=== PATIENT | male | born 1960 | race Caucasian/White ===

== ENCOUNTER 2019-10-12 18:12 | Inpatient (IN) | payer OTHER ==
[~2019-10-12] VITALS: Ht 177.8 cm; Wt 71.9 kg
[2019-10-12 18:15] VITALS: BP 124/73; BP 127/77
[2019-10-12] MEDS ORDERED: TYLENOL325 M1 PO (22:17)
[2019-10-12] MEDS ORDERED: DIGOX125 MCG PO (22:19)
[2019-10-12] MEDS ORDERED: LORAZEPAM 1 MG T1 MG PO (22:20)
[2019-10-12 22:22] LABS: ABSOLUTE NEUTROPHILS 4.6 thou/uL (1.4-8.2); BASOPHILS 0.6 % (0.0-2.0); EOSINOPHILS 0.4 % (0.0-3.0); HEMATOCRIT 44.5 % (42.0-52.0); HEMOGLOBIN 14.6 gm/dL (14.0-18.0); LYMPHOCYTES 5.5 % (24.0-44.0); MCH 30.6 pg (26.0-34.0); MCHC 32.8 g/dL (28.0-37.0); MCV 93.3 fL (80.0-100.0); MONOCYTES 11.5 % (1.0-8.0); PLATELET COUNT 348 thou/uL (150-400); RBC 4.77 mil/uL (4.50-6.00); RDW 19.1 % (10.5-14.5); WBC 5.7 thou/uL (4.0-11.0)
[2019-10-12] MEDS ORDERED: MSL20MG/ML PO (22:22)
[2019-10-12] MEDS ORDERED: PROAIR HFA8.5 GM INH (22:23)
[2019-10-12] MEDS ORDERED: NORCO 10-325 T1 EACH PO (22:23)
[2019-10-12] MEDS ORDERED: PROTONIX 20 MG20 M1 PO (22:24)
[2019-10-12 22:29] LABS: CALCIUM 8.3 mg/dL (8.5-10.1); POTASSIUM 5.1 mmol/L (3.5-5.1)
[2019-10-12 22:35] LABS: ALBUMIN 1.8 g/dL (3.4-5.0); DIRECT BILIRUBIN 1.6 mg/dL (<0.1-0.2); TOTAL BILIRUBIN 2.4 mg/dL (0.2-1.0); TOTAL PROTEIN 6.3 g/dL (6.4-8.2)
[2019-10-12 22:49] LABS: INR 1.2; PROTIME 12.3 Seconds (9.3-11.4)
[2019-10-13 00:06] VITALS: BP 120/73
[2019-10-13 00:23] VITALS: BP 109/76
[2019-10-13 01:32] VITALS: BP 116/78
[2019-10-13 05:42] VITALS: BP 104/58
[2019-10-13 06:25] LABS: ALBUMIN 1.7 g/dL (3.4-5.0); CALCIUM 8.3 mg/dL (8.5-10.1); CREATININE 0.8 mg/dL (0.7-1.3); TOTAL BILIRUBIN 2.8 mg/dL (0.2-1.0); TOTAL PROTEIN 5.9 g/dL (6.4-8.2)
--- NOTE | 2019-10-13 07:48 | EKG ---
[facility] [place] [address] ELECTROCARDIOGRAM REPORT Name: DAVID NEWMAN Room #: 354-P ADM IN M.R.#: [id number] Admission: 10/12/19 Attend Phys: Italia Sims MD Discharge: Date of : 56 Report #: [id number] THIS REPORT FOR: cc: Von Perez James D. DO Lundgren, Craig H. 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: DREW : 1960 Requested By: Crow Marie Order Number: [id number] MD: Leno Palacios Measurements Intervals [place] Rate: 96 P: [place]: QRS: 268 QRSD: 110 T: 106 QT: 338 QTc: 428 Interpretive Statements Sinus rhythm Inferior infarct, old Anteroseptal infarct, age indeterminate No previous ECG available for comparison Electronically Signed On 10-13-2019 7:48:13 CDT by Leno Palacios [email or web address] <ELECTRONICALLY SIGNED> By: Leno Palacios MD, [facility] 10/13/19 0748 [id number] Leno Palacios MD, [facility] /EPI
[2019-10-13 07:54] VITALS: BP 104/67
[2019-10-13] MEDS ORDERED: FLOMAX0.4 MG PO (09:54)
[2019-10-13] MEDS ORDERED: LIPITOR40 MG PO (09:55)
[2019-10-13 11:15] VITALS: BP 116/69
== END 2019-10-13 14:29 | disposition hospice, home (50) | DRG 177 ==
LOC: ER 18:12 → 3W 23:38 → EROBS 23:38 → 3W 10-13 00:37
PROVIDERS: Emergency Medicine; Nurse Practitioner Family; ADMIT Hospitalist; ATTEND Hospitalist
PROC: 0W9G3ZZ Drainage of Peritoneal Cavity, Percutaneous Approach (ICD-10-PCS; principal; 2019-10-13)
DX: U07.1 COVID-19 (principal); J96.01 Acute respiratory failure with hypoxia; R18.8 Other ascites; K74.60 Unspecified cirrhosis of liver; E87.70 Fluid overload, unspecified; K72.90 Hepatic failure, unspecified without coma; Z66 Do not resuscitate; Z79.899 Other long term (current) drug therapy; Z88.0 Allergy status to penicillin; Z87.891 Personal history of nicotine dependence

== ENCOUNTER 2019-11-05 14:02 | Inpatient (IN) | payer OTHER ==
[~2019-11-05] VITALS: Ht 172.7 cm; Wt 64.9 kg
--- NOTE | ~2019-11-05 | EMS ---
[address] [address] EMS Patient Care Report Name: DAVID NEWMAN Room #: 350-P ADM IN M.R.#: [id number] Admission: 11/05/19 Attend Phys: Aric Garrido MD Discharge: Date of : 56 Report #: [id number] THIS REPORT FOR: //name// Report Transmitted: 11/06/2019 06:08 EMS Care Summary [place], [place]/[facility] Incident [id number] @ 11/05/2019 13:31 Incident Location [address] [place] [address] Patient DAVID NEWMAN Male, 59 Years 1960 Patient Address [address] [place], [place] [id number] Patient History Cirrhosis of Liver, Patient Allergies Penicillin allergy, Patient Medications Acetaminophen, Lorazepam, Morphine, Chief Complaint PT CATHETER WILL NOT FLUSH Disposition Transported No Lights/[place] Dispatch Reason Abdominal Pain/Problems Transported To [facility] Narrative PT STATES THAT PT HAS A CATHETER THAT WILL NOT FLUSH FOR THE LAST 3 DAYS. PT STATES THAT PT HAS CHORISIS OF THE LIVER. PT'S NURSE REPORTS THAT THAT HAS NOT HAD A FEVER OR ANY RECENT COUGH. PT STATES THAT PT'S ABDOMEN HURTS BECAUSE OF [address] [address] EMS Patient Care Report Name: DAVID NEWMAN Room #: 350-P [facility] IN [place]#: [id number] Admission: 11/05/19 Attend Phys: Aric Garrido MD Discharge: Date of : 56 Report #: [id number] THE DISTENSION. PT HAS NOT OTHER COMPLAINTS. PT WAS FOUND BEIING WHEEL CHAIRED TO EMS BY PT'S NURSE. PT SPOKE IN FULL AND COMPLETE SENTENCES. PT IS ALERT AND ORIENTE. PT IS ABLE TO STAND AND PIVOT WITH ASSITEANCE. PT HAS A PARTIAL AMPUTEE OF RIGHT FOOT. PT HAS NO OTHER OBVIOUS ABNORMALITIES. Initial Vitals @13:50P: 97,BP: 97/62,CO: 0,SpO2: 98, @13:45P: 78,R: 18,BP: 121/79,Pain: 10/10,GCS: 15,SpO2: 90,Revised Trauma: 12, Assessments @13:41MENTAL:Person Oriented,Time Oriented,Place Oriented,Event Oriented,SKIN:HEENT:Eyes: Left Pupil: 3-mm,Eyes: Right Pupil: 3-mm,Head/Face: No Abnormalities,LUNG SOUNDS:General: Nausea,ABDOMEN:General: Nausea,PELVIS//GI:EXTREMITIES:Capillary Refill: Right Upper: < 2 Sec,Left Arm: No Abnormalities,Right Arm: No Abnormalities,Left Leg: No Abnormalities,PULSE:Radial: 2+ Normal,NEURO: Impression Abdominal Pain Timeline 13:29,Call Received 13:29,Dispatch Notified 13:31,Dispatched 13:32,En Route 13:39,On Scene 13:40,At Patient 13:45,BP: 121/79 M,PULSE: 78,RR: 18 R,SPO2: 90 Ox,ETCO2: ,BG: ,PAIN: 10,GCS: 15, 13:47,Depart Scene 13:50,BP: 97/62 M,PULSE: 97,RR: R,SPO2: 98 Ox,ETCO2: ,BG: ,PAIN: ,GCS: , 13:56,At Destination 14:25,Call Closed Disclaimer v1.1 Copyright 2020 [employer] This EMS Care Summary contains data elements from the applicable legal record (which may be displayed differently). It is designed to provide pertinent information for the following purposes: continuity of care, clinical quality, and state data reporting. The complete legal record is available to ED staff and administrators of the receiving hospital in [employer] Patient Tracker. All data is provided "as is."
[~2019-11-05 14:02] MED LIST: DIGOX125 MCG PO; FLOMAX0.4 MG PO; LIPITOR40 MG PO; LORAZEPAM 1 MG T1 MG PO; MSL20MG/ML PO; NORCO 10-325 T1 EACH PO; PROAIR HFA8.5 GM INH; PROTONIX 20 MG20 M1 PO; TYLENOL325 M1 PO
[2019-11-05 14:03] VITALS: BP 125/80
[2019-11-05 16:08] LABS: HEMATOCRIT 36.8 % (42.0-52.0); HEMOGLOBIN 12.1 gm/dL (14.0-18.0); MCH 31.2 pg (26.0-34.0); MCHC 32.9 g/dL (28.0-37.0); MCV 94.7 fL (80.0-100.0); PLATELET COUNT 438 thou/uL (150-400); RBC 3.89 mil/uL (4.50-6.00)
[2019-11-05 16:20] LABS: CALCIUM 7.5 mg/dL (8.5-10.1); CREATININE 0.7 mg/dL (0.7-1.3); POTASSIUM 3.9 mmol/L (3.5-5.1)
[2019-11-05 16:21] LABS: INR 1.3; PROTIME 12.7 Seconds (9.3-11.4)
[2019-11-05 16:38] LABS: ABSOLUTE NEUTROPHILS 3.8 thou/uL (1.4-8.2); ANISOCYTOSIS 1+; MICROCYTES SLIGHT
[2019-11-05 16:39] LABS: MACROCYTES SLIGHT; POLYCHROMASIA SLIGHT
--- NOTE | 2019-11-05 16:58 | NUR ---
O2 REMOVED BY PROVIDER, SATS DECREASED, O2 PUT BACK ON
--- NOTE | 2019-11-05 17:33 | NUR ---
PT SEEN SITTING UP IN BED. THIS NURSE ENTERS ROOM AND PATIENT HAD REMOVED OWN IV STATING "I DONT WANT THAT SHIT IN" PT HAS BLOOD ALL OVER HIM AND HAS REMOVED O2. PT AGREES TO PUT O2 BACK ON BUT WILL NOT LEAVE ANY OTHER MONITORING EQUIPMENT ON
[2019-11-05] MEDS ORDERED: MIDODRINE HCL 55 M1 PO (18:47)
[2019-11-05] MEDS ORDERED: MORPHINE S20 MG/5 ML PO (18:48)
[2019-11-05 19:02] VITALS: BP 100/72
[2019-11-05 19:22] VITALS: BP 102/65
[2019-11-05 19:30] VITALS: BP 93/60
--- NOTE | 2019-11-05 23:54 | NUR ---
ASSESSMENT: PT ARRIVED TO THE UNIT AT APPROXIMATELY 1930 FROM ED, ACCOMPANIED BY STAFF MEMBERS. ACCORDING TO ED STAFF, PT IS VERY UNCOOPERATIVE WITH CARE. PT REFUSED TO HAVE AN IV REPLACED. DID NOT WANT TO TAKE OFF SOILED GOWN AND DID NOT WANT TO HAVE VITALS TAKEN. PT ARRIVED ON THE UNIT WITHOUT AN IV, THIS RN OFFERED TO PLACE ANOTHER IV AND ONCE AGAIN, PT REFUSED. PT'S ABD IS DISTENDED, SOFT. PLEUR X DRAIN IS NOTED AND APPEARS TO BE INTACT. VSS, AFEBRILE. PT IS MED-SURG. PT YELLS OUT AND IS VERY DEMANDING. LATER PT WAS REQUESTING TO "GO SMOKE A CIGERETTE". A NICODERM PATCH WAS ORDERED. PT DID NOT LEAVE THE NICODERM PATCH ON LONG IN WHICH HE REMOVED AND TRIED TO REPLACE ELSE WHERE ON HIS BODY. PT INDICATED THAT HE WAS GOING TO PUT THE PATCH IN HIS MOUTH. PT WILL BE NPO AT [place] FOR IRRIGATION OF DRAIN IN IR. PT IS ON HOSPICE AT HIS FACILITY. PARTIAL LEFT FOOT INTACT. RIGHT DAMON NOTED TO HAVE CELLULITIS AND POSSIBLE PVD. SKIN ON RIGHT DAMON IS TAUNT/RED. BP IS LOW, NO PO ROXANOL GIVEN AT THIS TIME. PT DID RECEIVE IV MS IN ED PRIOR TO BEING TRANSPORTED TO THIS UNIT. WILL CONTINUE TO MONITOR.
[2019-11-06 07:31] VITALS: BP 86/52
--- NOTE | 2019-11-06 14:42 | NUR ---
INITIAL ASSESSMENT/DISCHARGE NOTE: HEIDY reviewed chart and spoke with nursing and attending physician. Pt was admitted from [facility] due to Ascites. Pt placed in Enhanced Isolation due to COVID-19. Pt's test is positive. Pt had procedure in IR this morning and is medically stable to return to the facility today and resume hospice services through [facility]. Pt with hx of end-stage liver disease. HEIDY faxed clinical info and discharge orders/summary to [place] post-acute liaison. Stretcher van transportation scheduled for [phone] per facility's arrangements. HEIDY faxed info and orders to [facility] and spoke with Natasha in intake to provide update. rug cleaner to see pt at the facility tomorrow. Chart copy requested. Nursing to call report. No additonal SW needs identified at this time, but is available to assist should needs arise.
[2019-11-06 15:02] VITALS: BP 111/74
--- NOTE | 2019-11-06 16:52 | NUR ---
PT CARE ASSUMED AT 0700, ALERT AND ORIENTED X4, NON COMPLIANT AND RESTLESS AT TIMES. PT COMPLAINS OF ABD PAIN DUE DISTENDED ABD. PT TAKEN DOWN TO IR TO REPLACE PERITONEAL/PLEUREX DRAIN, PT IS ON 2L OF O2, BARELY KEEPS IT ON. PT EDUCATION REINFORCED ABOUT KEEP O2 ON. FALL PRECAUTION IN PLACE, CALL LIGHT AND TABLE WITHIN REACH.
--- NOTE | 2019-11-06 17:18 | NUR ---
1630 ROSEY CALLED AND REPORT GIVEN TO VALENTINA. PT BELONGINGS PACKED AND SENT DOWN WITH PT WITH CHART COPY.
== END 2019-11-06 16:16 | DRG 433 ==
LOC: ER 14:02 → EROBS 17:50 → 3W 19:34
PROVIDERS: Emergency Medicine; ADMIT Hospitalist; ATTEND Hospitalist
PROC: 0WPGX3Z Removal of Infusion Device from Peritoneal Cavity, External Approach (ICD-10-PCS; principal; 2019-11-06)
PROC: 0W9G3ZZ Drainage of Peritoneal Cavity, Percutaneous Approach (ICD-10-PCS; 2019-11-06)
DX: K70.31 Alcoholic cirrhosis of liver with ascites (principal); C78.6 Secondary malignant neoplasm of retroperitoneum and peritoneum; J44.9 Chronic obstructive pulmonary disease, unspecified; F17.210 Nicotine dependence, cigarettes, uncomplicated; K72.90 Hepatic failure, unspecified without coma; Z88.0 Allergy status to penicillin; Z79.899 Other long term (current) drug therapy
CPT/HCPCS: 10879